=== PATIENT | female | born 1990 | race Hispanic/Latino ===

== ENCOUNTER 2018-04-15 20:22 | Emergency (ER) | payer OTHER ==
[~2018-04-15] VITALS: Ht 162.6 cm; Wt 77.1 kg
[2018-04-15] MEDS ORDERED: PROCARDIA XL30 MG (20:35)
[2018-04-15] MEDS ORDERED: LORAZEPAM INJ 2 MG/ML VIAL IV ONE (20:45)
== END 2018-04-15 21:40 | disposition home or self-care (01) ==
LOC: FSED 20:22
DX: R06.02 Shortness of breath (principal); R07.89 Other chest pain; F41.1 Generalized anxiety disorder
CPT/HCPCS: 71046; 74022; 80048; 80076; 81003; 81025; 85025; 85379; 99283; J2060